=== PATIENT | male | born 1940 | race Two or more races ===

== ENCOUNTER 2023-09-21 15:06 | Emergency (ER) | payer MEDICARE, OTHER ==
[~2023-09-21] VITALS: Ht 182.9 cm; Wt 128.4 kg
[2023-09-21 16:21] VITALS: BP 142/62; PULSE 68; RESP 18; TEMP 98.7; O2SAT 98
== END 2023-09-21 17:26 | disposition home or self-care (01) ==
LOC: ER 15:06
DX: S01.01XA Laceration without foreign body of scalp, initial encounter (principal); I10 Essential (primary) hypertension; W18.09XA Striking against other object with subsequent fall, initial encounter; Y93.89 Activity, other specified; Y92.89 Other specified places as the place of occurrence of the external cause; Y99.8 Other external cause status
CPT/HCPCS: 12001; 70450